=== PATIENT | female | born 1975 | race Caucasian/White ===

== ENCOUNTER 2018-08-29 17:47 | Emergency (ER) | payer OTHER ==
[~2018-08-29] VITALS: Ht 165.1 cm; Wt 97.5 kg
[~2018-08-29 17:47] MED LIST: ADDERALL 20 MG20 MG PO; MACROBID100 M1 PO; NAPROSYN500 MG PO; OMNICEF300 MG PO; PHENERGAN25 M1 PO; PREDNISONE20 M1 PO; ROBAXIN750 MG PO; TESSALON PERLE100 M1 PO; TRAMADOL HCL50 MG PO; ULTRAM50 MG PO
[2018-08-29] MEDS ORDERED: ZITHROMAX250 MG PO (19:35)
[2018-08-29] MEDS ORDERED: CYCLOBENZAPRINE5 M3 PO (19:35)
[2018-08-29] MEDS ORDERED: MEDROL DOSEPAK4 MG PO (19:35)
== END 2018-08-29 19:43 | disposition home or self-care (01) ==
LOC: ED 17:47
DX: S39.012A Strain of muscle, fascia and tendon of lower back, initial encounter (principal); J40 Bronchitis, not specified as acute or chronic; Z79.2 Long term (current) use of antibiotics; Z79.899 Other long term (current) drug therapy; X58.XXXA Exposure to other specified factors, initial encounter; Y93.89 Activity, other specified; Y92.89 Other specified places as the place of occurrence of the external cause; Y99.8 Other external cause status

== ENCOUNTER 2018-10-30 12:14 | Inpatient (IN) | payer OTHER ==
--- NOTE | ~2018-10-30 | EKG ---
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
--- NOTE | ~2018-10-30 | PR ---
[place], [place] PROGRESS NOTE NAME: GARIMA LOREDO UNIT #: [id number] ROOM: 404 DOCTOR: BHAVNA LEE MD BIRTHDATE: [birth year] DOS: 10/31/2018 SUBJECTIVE: The patient was seen today in the Cardiology Department just prior to her stress test. She had a restless night and did not sleep well due to the hospital environment, but states that she feels reasonably well this morning. She denies any chest discomfort or dyspnea. She cannot say if she feels mentally fuzzy or not since she has not been challenged yet today. Her monitor has remained normal overnight. Serial cardiac biomarkers have been negative as well. PHYSICAL EXAMINATION: VITAL SIGNS: Today, her pulse is 86 and regular, blood pressure is 108/72. She is afebrile. NECK: Supple. She has no jugular distention. Carotids are full. LUNGS: Respirations are unlabored. Her chest is clear. HEART: Has regular rhythm with an S4 gallop. EXTREMITIES: Showed no edema. Her echocardiogram from yesterday showed normal left ventricular size with mild concentric left ventricular hypertrophy. Left ventricular wall motion and systolic function are normal. Ejection fraction is between 60 and 65%. There is stage 1 diastolic dysfunction present. There is physiologic mitral insufficiency, physiologic tricuspid insufficiency and normal right ventricular systolic pressure. The aortic valve appears normal. Hemoglobin A1c was normal at 5.6, total cholesterol was 129, triglycerides 150, LDL 68, HDL 31. TSH was normal at 0.832. IMPRESSION: 1. Atypical precordial chest pain. 2. History of hypertension, well controlled. 3. No evidence for acute coronary ischemia by EKG, troponin, or echo data. PLAN: We will proceed with an exercise stress test today. Further recommendations will depend upon the results of the stress test. [place], [place] PROGRESS NOTE NAME: GARIMA LOREDO UNIT #: [id number] ROOM: 404 DOCTOR: BHAVNA LEE MD BIRTHDATE: [birth year] BHAVNA LEE MD CM:PNTRANS [id number] BHAVNA LEE MD 11/01/18 0124 interface
--- NOTE | ~2018-10-30 | EKG ---
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
--- NOTE | ~2018-10-30 | EKG ---
[place], [place] ELECTROCARDIOGRAM REPORT NAME: GARIMA LOREDO UNIT #: [id number] ROOM: 404 DOCTOR: JORGE DRAFT REPORT BIRTHDATE: [birth year] [facility] Test Date: 2018-10-30 Test Time: 12:17:03 Pat Name: GARIMA LOREDO Department: Room: 404 Gender: F Clinical Application Manager: Cecilia Goins : 1975 Requested By: MARIN MCKEON Order Number: [id number] Reading MD: Jared Austin MD Measurements Intervals [place] Rate: 95 P: 57 DE: 153 QRS: 30 QRSD: 102 T: 21 QT: 342 QTc: 430 Interpretive Statements Sinus rhythm Abnormal R-wave progression, late transition Electronically Signed On 10-30-2018 21:38:40 PST by Jared Austin MD CM:EKGRPT:ELECTROCARDIOGRAM REPORT 1217 MARIN PATEL DRAFT REPORT MARIN MCKEON MD
[~2018-10-30 12:14] MED LIST changes: +CYCLOBENZAPRINE5 M3 PO; +MEDROL DOSEPAK4 MG PO; +ZITHROMAX250 MG PO
[2018-10-30 12:20] VITALS: BP 92/49
[2018-10-30] MEDS ORDERED: ZESTORETIC 20-1 EACH PO (12:23)
[2018-10-30 12:40] VITALS: BP 105/70
[2018-10-30 12:51] LABS: BASO % 0.4 % (0.0-1.0); EOS # 0.2 10*3/uL (0.0-0.4); EOS % 3.1 % (1.0-4.0); HEMATOCRIT 41.1 % (37.0-47.0); HEMOGLOBIN 14.2 g/dl (12.0-16.0); LYMPH # 1.5 10*3/uL (1.3-4.4); LYMPH % 29.5 % (27.0-41.0); MEAN CELL VOLUME 87.8 fl (81.0-99.0); MEAN CORPUSCULAR HGB 30.3 pg (27.0-31.0); MEAN CORPUSCULAR HGB CONC 34.5 g/dl (33.0-37.0); MEAN PLATELET VOLUME 10.1 fl (9.6-12.3); MONO # 0.5 10*3/uL (0.1-1.0); NEUT % 57.8 % (47.0-73.0); PLATELET COUNT AUTOMATED 296 10*3/uL (130-400); RED BLOOD COUNT 4.68 10*6/uL (4.10-5.10); RED CELL DISTRI WIDTH 11.3 % (0-14.5); WHITE BLOOD COUNT 5.2 10*3/uL (4.8-10.8)
[2018-10-30 13:01] LABS: ACT PARTIAL THROMBO TIME 22.5 SECONDS (20.8-31.5)
[2018-10-30 13:07] LABS: ALBUMIN 3.9 gm/dl (3.1-4.5); ALKALINE PHOSPHATASE 99 U/L (45-117); BUN 17 mg/dl (7-24); CHLORIDE 106 mmol/L (98-107); CREATININE 1.52 mg/dL (0.55-1.02); POTASSIUM 3.4 mmol/L (3.5-5.1); SGOT/AST 21 IU/L (3-35); SGPT/ALT 23 U/L (12-78); SODIUM 140 mmol/L (136-145); TOTAL PROTEIN 7.4 gm/dL (6.4-8.2)
[2018-10-30 13:09] LABS: TROPONIN I < 0.015 ng/ml (<0.045)
[2018-10-30 13:25] VITALS: BP 101/63
[2018-10-30 13:40] VITALS: BP 11/70; BP 110/70
--- NOTE | 2018-10-30 13:40 | NUR ---
A 42, admitted to , under the services of ANGELINA Valles DO with a diagnosis of CHEST PAIN /HIGH RISK,NEAR SYNCOPE. Chief complaint is CHEST PAIN. Patient arrived via bed from ER. Monitor applied. Initial assessment completed. Vital signs taken and recorded. ANGELINA VALLES DO notified of admission to the unit. Orders received. See assessment for past medical history, medications and allergies. Patient and/or family oriented to unit. [facility] visitation policy reviewed. Clothing/patient valuable form completed. BYRON HOFFMAN
[2018-10-30] MEDS ORDERED: NEURONTIN100 MG PO (14:24)
--- NOTE | 2018-10-30 14:26 | NUR ---
Meds reconciled with pt at bedside.
--- NOTE | 2018-10-30 14:32 | NUR ---
NOTIFIED DR LEE OF NEW CONSULT FOR CHEST PAIN.
[2018-10-30 16:00] VITALS: BP 114/63
--- NOTE | 2018-10-30 19:00 | NUR ---
PT AWAKE IN BED DURING BEDSIDE SHIFT REPORT. PT REQUESTING HOME MEDS BE R/O. WILL NOTIFY
[2018-10-30 20:00] VITALS: BP 117/68
--- NOTE | 2018-10-30 20:15 | NUR ---
DR. LAO NOTIFED OF PT REQUESTING DOSE OF NEURONTIN NOW D/T SHE HAS ONLY HAD ONE DOSE TODAY. OK TO GIVE DOSE NOW. AND PT REQUESTING LISINOPRIL/HCTZ R/O. NOTIFIED THAT MED IS BEING HELD D/T LOW BP AND ELEVATED KIDNEY FUNCTION. WILL ADVISE PT OF SUCH.
--- NOTE | 2018-10-30 23:06 | NUR ---
MEDICATED W/RESTORIL PER PT REQUEST TO HELP PROMOTE SLEEP. PT SITTING UP IN BED EATING/DRINKING AT THIS TIME. PT REMINDED OF NPO STATUS AFTER MIDNIGHT. PT ACKNOWLEDGES.
[2018-10-31] VITALS: BP 112/52
[2018-10-31 06:13] LABS: BASO % 0.2 % (0.0-1.0); EOS # 0.3 10*3/uL (0.0-0.4); EOS % 6.3 % (1.0-4.0); HEMATOCRIT 38.1 % (37.0-47.0); LYMPH % 44.6 % (27.0-41.0); MEAN CELL VOLUME 89.2 fl (81.0-99.0); MEAN CORPUSCULAR HGB 30.4 pg (27.0-31.0); MEAN CORPUSCULAR HGB CONC 34.1 g/dl (33.0-37.0); MEAN PLATELET VOLUME 10.2 fl (9.6-12.3); MONO # 0.5 10*3/uL (0.1-1.0); MONO % 11.3 % (3.0-9.0); NEUT # 1.7 10*3/uL (2.3-7.9); NEUT % 37.4 % (47.0-73.0); PLATELET COUNT AUTOMATED 252 10*3/uL (130-400); RED BLOOD COUNT 4.27 10*6/uL (4.10-5.10); RED CELL DISTRI WIDTH 11.5 % (0-14.5); WHITE BLOOD COUNT 4.4 10*3/uL (4.8-10.8)
[2018-10-31 06:24] LABS: BUN 13 mg/dl (7-24); CHLORIDE 107 mmol/L (98-107); CHOLESTEROL 129 mg/dL (<200); CREATININE 0.78 mg/dL (0.55-1.02); FREE T4 0.87 ng/dl (0.76-1.46); HDL CHOLESTEROL 31 mg/dl (40-60); LDL CHOLESTEROL 68 mg/dL (9-159); PHOSPHOROUS 3.6 mg/dL (2.5-4.9); SODIUM 140 mmol/L (136-145); TRIGLYCERIDES 150 mg/dl (<150); VLDL CHOLESTEROL 30 mg/dL (6-40)
[2018-10-31 06:31] LABS: THYROID STIM HORMONE (HS) 0.832 uIU/ml (0.358-4.75)
[2018-10-31 07:11] LABS: VITAMIN D, 25-HYDROXY 34.1 ng/mL (30-100)
[2018-10-31 08:01] VITALS: BP 108/72
--- NOTE | 2018-10-31 09:00 | NUR ---
Foreign Diplomat in to talk to patient. Patient states lives at home with family. There are few steps in the home. Physician: victor m draper Pharmacy: [facility] health services: none Patient's level of ADLs: INDEPENDENT Patient has working utilities: all working DME: none Follow-up physician's appointment after d/c: will be made by hospitalist nurse director upon discharge Does patient want to access PORTAL?: no Discharge plan discussed with patient, patient lives at home, is independent in adls and ambulation, works, drives, patient states she will be going home when able and denies any home needs. LAMONT PELAEZ
--- NOTE | 2018-10-31 10:00 | NUR ---
INFORMED CONSENT OBTAINED FOR EXERCISE CARDIOLITE STRESS TEST WITH DR. LEE. RESTING EKG NSR WITH A SUPINE HR OF 69 WITH BP OF 112/74 AND HR OF 89 WITH BP OF 108/72 IN STANDING POSITION. PT COMPLETED 11:15 OF A SHAGGY PROTOCOL WITH COMPLETION OF 2:15 OF STAGE IV AT 4.2 MPH AND 16% GRADE. REACHED A PEAK HR OF 155 WHICH IS 88% OF PREDICTED MAX WITH A PEAK BP OF 148/80. HAD NO CHEST PAIN OR ANY EKG CHANGES. TEST TERMINATED BECAUSE OF FATIGUE. HAS A HIGH EXERCISE TOLERANCE. LAST RECOVERY HR OF 92 WITH BP OF 124/70. TO NUCLEAR MEDICINE IN STABLE CONDITION FOR SCANNING.
[2018-10-31 12:00] VITALS: BP 123/64
[2018-10-31 16:00] VITALS: BP 117/65
--- NOTE | 2018-10-31 16:25 | NUR ---
Per patient request Dr. Carpio was called for c/o back pain. See new orders.
--- NOTE | 2018-10-31 19:58 | NUR ---
PT. WAS TOLD SHE WILL BE DISCHARGED TODAY DAYLIGHT RN REMOVED IV AND RN CALLED [facility] TO HAVE THE DISCHARGE ORDER PLACED. INTRODUCED MYSELF TO PATIENT AND SPOKE TO PATIENT ABOUT NO DISCHARGE ORDER WAS PLACED YET. PT. UPSET CURSING AND STATED "AT THIS POINT I AM NOT GOING HOME NOW. YOU CAN JUST CALL THEM AND TELL THEM THAT." PT. STILL CURSING HOSPITAL AND HER RIDE THAT CAME TWO HOURS AGO TO PICK HER UP LEFT. PT. STATED " MO---- F---. WHY COULDN'T HE JUST GO OUT THERE AND PUT THE ORDER IN!".
--- NOTE | 2018-10-31 20:05 | NUR ---
DR. YODER AND DR. ALLEN WENT TO PATIENT ROOM AND SPOKE WITH PATIENT. PATIENT IS GOING TO BE DISCHARGE TONIGHT.
--- NOTE | 2018-10-31 20:27 | NUR ---
Discharge instructions reviewed with patient/family. Patient receptive and verbalizes understanding. Follow-up care arranged. Written instructions given to patient/family. work slip given to patient. RENY ALEXANDER
== END 2018-10-31 20:27 | disposition home or self-care (01) | DRG 391 ==
LOC: ED 12:14 → EDHOLD 13:06 → 4E 13:06
PROVIDERS: Emergency Medicine; Internal Medicine; ADMIT Internal Medicine
PROC: 4A02XM4 Measurement of Cardiac Total Activity, External Approach (ICD-10-PCS; principal; 2018-10-31)
PROC: 3E073KZ Introduction of Other Diagnostic Substance into Coronary Artery, Percutaneous Approach (ICD-10-PCS; 2018-10-31)
DX: K21.9 Gastro-esophageal reflux disease without esophagitis (principal); N17.0 Acute kidney failure with tubular necrosis; R65.11 Systemic inflammatory response syndrome (SIRS) of non-infectious origin with acute organ dysfunction; R55 Syncope and collapse; E66.9 Obesity, unspecified; E87.6 Hypokalemia; F41.9 Anxiety disorder, unspecified; I10 Essential (primary) hypertension; E83.41 Hypermagnesemia; R06.82 Tachypnea, not elsewhere classified; Z71.6 Tobacco abuse counseling; Z72.0 Tobacco use; I25.2 Old myocardial infarction; Z90.49 Acquired absence of other specified parts of digestive tract; Z90.710 Acquired absence of both cervix and uterus; Z82.49 Family history of ischemic heart disease and other diseases of the circulatory system; Z83.438 Family history of other disorder of lipoprotein metabolism and other lipidemia; Z83.3 Family history of diabetes mellitus; Z79.899 Other long term (current) drug therapy; Z68.35 Body mass index [BMI] 35.0-35.9, adult

== ENCOUNTER 2025-01-02 11:09 | Emergency (ER) | payer OTHER ==
[~2025-01-02] VITALS: Ht 165.1 cm; Wt 113.4 kg
[~2025-01-02 11:09] MED LIST changes: +NEURONTIN100 MG PO; +ZESTORETIC 20-1 EACH PO
[2025-01-02] MEDS ORDERED: Acetaminophen/Oxycodone 5 MG/325 MG TABLET PO ONE (11:25)
[2025-01-02] MEDS ORDERED: NAPROSYN500 MG PO (12:37)
== END 2025-01-02 12:58 | disposition home or self-care (01) ==
LOC: ED 11:09
DX: S86.912A Strain of unspecified muscle(s) and tendon(s) at lower leg level, left leg, initial encounter (principal); Z79.899 Other long term (current) drug therapy; Z90.49 Acquired absence of other specified parts of digestive tract; Z90.710 Acquired absence of both cervix and uterus; Z90.89 Acquired absence of other organs; Z98.890 Other specified postprocedural states; X50.1XXA Overexertion from prolonged static or awkward postures, initial encounter; Y93.89 Activity, other specified; Y92.89 Other specified places as the place of occurrence of the external cause; Y99.8 Other external cause status